=== PATIENT | male | born 1975 | race Native Hawaiian/Other Pacific Islander ===

== ENCOUNTER 2020-02-14 23:58 | Inpatient (IN) | payer OTHER ==
[~2020-02-14] VITALS: Ht 188 cm; Wt 145.9 kg
[2020-02-14 23:58] VITALS: BP 174/93; TEMP 100.4
[2020-02-15] VITALS (22 sets, daily range): BP systolic 119–159; BP diastolic 39–93; TEMP 98.4–99.2; Ht 188 cm; Wt 145.9 kg
[2020-02-15 00:58] LABS: POTASSIUM 3.6 mmol/L (3.6-5.2); SODIUM 135 mmol/L (136-145)
[2020-02-15 01:11] LABS: PLATELET COUNT 171 K/uL (142-355)
[2020-02-15 01:13] LABS: PARTIAL THROMBOPLASTIN TIME 23.5 SECONDS (24.5-33.6)
[2020-02-15] MEDS ORDERED: METFORMIN HYD1000 MG PO (12:54)
[2020-02-15] MEDS ORDERED: FLUOXETINE40 MG PO (12:55)
[2020-02-15] MEDS ORDERED: GLIM4TAB PO (12:57)
[2020-02-15] MEDS ORDERED: AMLODIPINE BESYLATE PO (12:58)
[2020-02-16] VITALS (12 sets, daily range): BP systolic 121–160; BP diastolic 54–96; TEMP 97.3–98.7
[2020-02-16 05:47] LABS: POTASSIUM 4.2 mmol/L (3.6-5.2)
[2020-02-16] MEDS ORDERED: AZIT250T3 PO (09:53)
[2020-02-16] MEDS ORDERED: DECADRON6 MG PO (09:54)
[2020-02-16] MEDS ORDERED: ZOFRAN8 MG PO (09:57)
== END 2020-02-16 12:35 | disposition home or self-care (01) | DRG 177 ==
LOC: ED 23:58 → ICU 02-15 00:55
PROVIDERS: Internal Medicine; ADMIT Hospitalist
DX: U07.1 COVID-19 (principal); J96.00 Acute respiratory failure, unspecified whether with hypoxia or hypercapnia; E11.9 Type 2 diabetes mellitus without complications; I10 Essential (primary) hypertension; A08.8 Other specified intestinal infections
CPT/HCPCS: 36415; 36600; 80053; 82550; 82805; 83605; 83880; 84484; 85027; 85610; 85730; 87040; 93005; 94664; 94760; 96360; 96365; 96372; 96375; 99284; J1100; J1650; J1815; J1956